=== PATIENT | male | born 2000 | race Two or more races ===

== ENCOUNTER 2022-08-06 09:18 | Outpatient (CLI) | payer OTHER ==
--- NOTE | 2022-08-06 15:52 | XRAY Report ---
PROCEDURE: Ankle 3 View RT INDICATIONS: ANKLE PX TECHNIQUE: 3 views of the ankle were acquired. COMPARISON: None FINDINGS: Bones: No fractures or dislocations. Ankle mortise is normally aligned. No suspicious bony lesions . Soft tissues: No tibiotalar joint effusion. Achilles tendon appears normal. IMPRESSION: No visualized acute fracture or dislocation. However, occult injury cannot be excluded. Recommend short interval imaging follow-up in 7-10 days as clinically indicated for additional evalua tion. Reviewed by: Maile Berrios MD on 08/06/2022 3:50 PM PST Approved by: Maile Berrios MD on 08/06/2022 3:50 PM PST Station ID: [id number]
== END 2022-08-06 09:19 | disposition home or self-care (01) ==
LOC: DI 09:18
PROVIDERS: ATTEND Physician Assistant Medical
DX: S93.491A Sprain of other ligament of right ankle, initial encounter (principal)